=== PATIENT | female | born 1950 | race Caucasian/White ===

== ENCOUNTER 2016-12-16 12:29 | Inpatient (IN) | payer OTHER ==
[2016-12-04 11:20] VITALS: BP 121/75
[~2016-12-16] VITALS: Ht 171.4 cm; Wt 64.0 kg
[~2016-12-16 12:29] MED LIST: CLINDAMYCIN 150 MG/ML, 6ML ONE; SERT50TA5 PO; TRAM50TA2 PO; VITA100022 PO; [UNRECOGNIZED DRUG - OTHER] PO
[2016-12-16] MEDS ORDERED: VANCOMYCIN PER PHARMACY MC STA (12:38)
[2016-12-16] MEDS ORDERED: VANCOMYCIN 1,300 MG in SODIUM CHLORIDE 0.9% 250 ML IV ONE (13:00)
[2016-12-16] MEDS ORDERED: LACTATED RINGERS 1,000 ML IV SCH (13:09)
[2016-12-16] MEDS ORDERED: CHOL2000 PO (13:12)
[2016-12-16] MEDS ORDERED: LIDOCAINE 1%, 2ML SQ PRN (13:30)
[2016-12-16] MEDS ORDERED: FENTANYL PF 100 MCG/2ML ONE (13:35)
[2016-12-16] MEDS ORDERED: DEXAMETHASONE 4 MG/ML, 1ML ONE (13:36)
[2016-12-16] MEDS ORDERED: SUCCINYLCHOLINE 20 MG/ML, 10ML ONE (13:36)
[2016-12-16] MEDS ORDERED: MIDAZOLAM 1 MG/ML, 2ML ONE (13:36)
[2016-12-16] MEDS ORDERED: BUPIVACAINE/PF 0.5% ONE (13:36)
[2016-12-16] MEDS ORDERED: CEFAZOLIN 1,000 MG ONE (13:36)
[2016-12-16] MEDS ORDERED: LIDOCAINE GEL 2%, 5ML ONE (13:36)
[2016-12-16] MEDS ORDERED: LIDOCAINE-MPF 2% ,5ML ONE (13:36)
[2016-12-16] MEDS ORDERED: ONDANSETRON 2MG/ML, 2ML ONE (13:36)
[2016-12-16] MEDS ORDERED: PROPOFOL 10 MG/ML, 20ML ONE (13:36)
[2016-12-16] MEDS: D5%-0.45% NACL 1,000 ML IV SCH (15:18)
[2016-12-16] MEDS: HYDROcodone/APAP 10/325 MG TABLET PO SCH ×3 (15:30→22:41)
[2016-12-16] MEDS ORDERED: ONDANSETRON 2MG/ML, 2ML IVPush PRN ×2 (15:30→18:00)
[2016-12-16] MEDS ORDERED: ROCURONIUM 10 MG/ML ONE (15:30)
[2016-12-16] MEDS ORDERED: NEOSTIGMINE 1 MG/ML, 10ML ONE (15:30)
[2016-12-16] MEDS ORDERED: GLYCOPYRROLATE 0.2MG/1ML, 5ML ONE (15:30)
[2016-12-16] MEDS ORDERED: morphine SULFATE 10 MG/ML, 1ML IVPush PRN (15:30)
[2016-12-16] MEDS ORDERED: PHENYLEPHRINE 10 MG/ML ONE (15:30)
[2016-12-16] MEDS ORDERED: OXYcodone 5 MG/5 ML ORAL.SOL UDC ONE (17:54)
[2016-12-16] MEDS ORDERED: ACETAMINOPHEN 650 MG/20.3 ML UDC ONE (17:54)
[2016-12-16] MEDS ORDERED: PROMETHAZINE 25 MG/ML, 1ML IV PRN (18:00)
[2016-12-16] MEDS ORDERED: MEPERIDINE/PF 25MG/0.5ML IVPush PRN (18:00)
[2016-12-16] MEDS ORDERED: ACETAMINOPHEN 325 MG TABLET PO PRN (18:00)
[2016-12-16] MEDS ORDERED: KETOROLAC 30 MG/1 ML IV PRN (18:00)
[2016-12-16] MEDS ORDERED: LABETALOL 5MG/ML, 20ML IV PRN (18:00)
[2016-12-16] MEDS ORDERED: HYDROmorphone 1 MG/ML, 1ML IV PRN (18:00)
[2016-12-16] MEDS ORDERED: DIAZEPAM 5 MG/ML, 2ML IVPush PRN (18:00)
[2016-12-16] MEDS ORDERED: OXYcodone 5 MG/5 ML ORAL.SOL UDC PO PRN (18:00)
[2016-12-16] MEDS ORDERED: FENTANYL PF 100 MCG/2ML IV PRN (18:00)
[2016-12-16] MEDS ORDERED: hydrALAzine 20 MG/ML, 1ML IV PRN (18:00)
[2016-12-16] MEDS ORDERED: ALBUTEROL/IPRATROPIUM 2.5MG/0.5MG, 3 ML NPPB PRN (18:00)
[2016-12-16] MEDS ORDERED: MIDAZOLAM 1 MG/ML, 2ML IV PRN (18:00)
[2016-12-16 18:50] VITALS: BP 118/76
[2016-12-16] MEDS: DOCUSATE 100 MG CAPSULE PO SCH (22:33)
[2016-12-16 23:53] VITALS: BP 97/59
[2016-12-17] MEDS: D5%-0.45% NACL 1,000 ML IV SCH (01:18)
[2016-12-17] MEDS: HYDROcodone/APAP 10/325 MG TABLET PO SCH ×3 (02:57→10:45)
[2016-12-17 03:42] VITALS: BP 101/63
[2016-12-17 08:38] VITALS: BP 103/67
[2016-12-17] MEDS: DOCUSATE 100 MG CAPSULE PO SCH (09:00)
== END 2016-12-17 11:10 | disposition home or self-care (01) | DRG 483 ==
LOC: ORIP 12:29 → 4NOR 18:50 → DCLOUNGE 12-17 10:54
PROVIDERS: ADMIT Orthopaedic Surgery; ATTEND Orthopaedic Surgery
PROC: 0LS40ZZ Reposition Left Upper Arm Tendon, Open Approach (ICD-10-PCS; 2016-12-16)
PROC: 0RRK00Z Replacement of Left Shoulder Joint with Reverse Ball and Socket Synthetic Substitute, Open Approach (ICD-10-PCS; principal; 2016-12-16 16:45)
DX: M19.012 Primary osteoarthritis, left shoulder (principal); M75.00 Adhesive capsulitis of unspecified shoulder; S42.2 Fracture of upper end of humerus; M75.20 Bicipital tendinitis, unspecified shoulder
CPT/HCPCS: J0690; J1100; J2250; J2405; J2704; J2710; J3010; J3370; J3490; J0330; J2370; J7050; J7120